=== PATIENT | male | born 1970 | race Caucasian/White ===

== ENCOUNTER 2018-05-08 23:31 | Inpatient (IN) | payer OTHER ==
[~2018-05-08] VITALS: Ht 193 cm; Wt 90.0 kg
[~2018-05-08 23:31] MED LIST: Crutch1 EACH MISC; Keflex500 MG PO; Naprosyn500 MG PO; Norco 10-325 T1 EACH PO; Prednisone10 MG PO
[2018-05-08 23:51] LABS: PCO2 Arterial 50.6 mmHg (35-45); PO2 Arterial 84.2 mmHg (80-100); pH Blood Arterial 7.36 (7.35-7.45)
[2018-05-09 00:03] LABS: BASOPHILS ABSOLUTE AUTO 0.05 K/mm3 (0.00-0.23); BASOPHILS PERCENT AUTO 0 % (0-2); EOSINOPHILS ABSOLUTE AUTO 0.16 K/mm3 (0.00-0.68); EOSINOPHILS PERCENT AUTO 1 % (0-6); Hemoglobin 15.3 g/dL (13.5-17.5); IMMATURE GRAN ABSOLUTE AUTO 0.05 K/mm3 (0.00-0.10); IMMATURE GRAN PERCENT AUTO 0 % (0-1); LYMPHOCYTES PERCENT AUTO 10 % (21-46); MONOCYTES ABSOLUTE AUTO 1.24 K/mm3 (0.16-1.47); MONOCYTES PERCENT AUTO 8 % (4-13); Mean Corpuscular HGB 31.7 pg (26.0-34.0); Mean Corpuscular Volume 93 fL (80-100); Mean Platelet Volume 8.7 fL (9.1-12.4); NEUTROPHILS ABSOLUTE AUTO 12.65 K/mm3 (1.96-9.15); NEUTROPHILS PERCENT AUTO 80 % (41-73); Platelet Count 299 K/mm3 (150-400); RDW Coefficient Variation 11.7 % (11.7-14.2); RDW Standard Deviation 40.1 fL (35.1-46.3); Red Blood Cell Count 4.82 M/mm3 (4.30-5.90); White Blood Cell Count 15.75 K/mm3 (4.00-11.30)
[2018-05-09 00:22] LABS: Alanine Aminotransfer (ALT/SGP 100 U/L (12-78); Albumin, Blood 4.1 g/dL (3.4-5.0); Albumin/Globulin Ratio 1.1 (0.8-1.8); Alk Phos 95 U/L (50-136); Anion Gap 7 mmol/L (6-16); Aspartate Aminotrans (AST/SGOT 134 U/L (12-37); Bilirubin, Total 0.3 mg/dL (0.1-1.0); Blood Urea Nitrogen 22 mg/dL (8-24); CO2, Blood 29 mmol/L (21-32); Calcium, Blood 9.3 mg/dL (8.5-10.1); Chloride, Blood 104 mmol/L (98-108); Creatinine, Blood 1.16 mg/dL (0.60-1.20); Globulin, Blood 3.7 g/dL (2.2-4.0); Glomerular Filtration Rate >60 (60-); Glucose, Blood 133 mg/dL (70-99); Potassium, Blood 4.1 mmol/L (3.5-5.5); Sodium, Blood 140 mmol/L (136-145); Total Protein, Blood 7.8 g/dL (6.4-8.2)
[2018-05-09 02:38] LABS: Ethanol (Alcohol), Blood, Med <3 mg/dL
[2018-05-10] MEDS ORDERED: Percocet 5-3251 EACH PO (16:27)
[2018-05-10] MEDS ORDERED: DOCU100 PO (16:36)
[2018-05-10] MEDS ORDERED: MIRALAX17 GM PO (16:37)
== END 2018-05-10 18:20 | disposition home or self-care (01) | DRG 206 ==
LOC: ER 23:31 → SURS 23:32
PROVIDERS: Emergency Medicine
PROC: 0W9930Z Drainage of Right Pleural Cavity with Drainage Device, Percutaneous Approach (ICD-10-PCS; principal; 2018-05-09)
DX: S27.321A Contusion of lung, unilateral, initial encounter (principal); S22.41XA Multiple fractures of ribs, right side, initial encounter for closed fracture; S27.2XXA Traumatic hemopneumothorax, initial encounter; F17.210 Nicotine dependence, cigarettes, uncomplicated; S70.11XA Contusion of right thigh, initial encounter; S00.81XA Abrasion of other part of head, initial encounter; V28.4XXA Motorcycle driver injured in noncollision transport accident in traffic accident, initial encounter; Y93.I9 Activity, other involving external motion
CPT/HCPCS: 32551; 36415; 36600; 70450; 71045; 71046; 71260; 72125; 74177; 80053; 82803; 85025; 96361; 96374; 96375; 99285-25; G0378; G0480; J1170; J1650; J1885; J2405; J3010; J7030; J7120; Q0163; Q9967

== ENCOUNTER 2018-05-13 06:38 | Emergency (ER) | payer OTHER ==
[~2018-05-13] VITALS: Ht 188 cm; Wt 90.7 kg
[~2018-05-13 06:38] MED LIST changes: +DOCU100 PO; +MIRALAX17 GM PO; +Percocet 5-3251 EACH PO
[2018-05-13] MEDS ORDERED: Miralax17 GM PO (07:12)
== END 2018-05-13 07:37 | disposition home or self-care (01) ==
LOC: ER 06:38
DX: K59.03 Drug induced constipation (principal); T40.2X5A Adverse effect of other opioids, initial encounter; Z87.891 Personal history of nicotine dependence
CPT/HCPCS: 99282

== ENCOUNTER 2018-05-17 10:53 | Emergency (ER) | payer OTHER ==
[~2018-05-17] VITALS: Ht 190.5 cm; Wt 86.2 kg
[~2018-05-17 10:53] MED LIST changes: +Miralax17 GM PO
[2018-05-17 11:58] LABS: BASOPHILS ABSOLUTE AUTO 0.06 K/mm3 (0.00-0.23); BASOPHILS PERCENT AUTO 1 % (0-2); EOSINOPHILS ABSOLUTE AUTO 0.16 K/mm3 (0.00-0.68); EOSINOPHILS PERCENT AUTO 2 % (0-6); Hematocrit 42.8 % (37.0-53.0); Hemoglobin 14.8 g/dL (13.5-17.5); IMMATURE GRAN ABSOLUTE AUTO 0.05 K/mm3 (0.00-0.10); IMMATURE GRAN PERCENT AUTO 1 % (0-1); LYMPHOCYTES PERCENT AUTO 19 % (21-46); MONOCYTES ABSOLUTE AUTO 1.54 K/mm3 (0.16-1.47); MONOCYTES PERCENT AUTO 21 % (4-13); Mean Corpuscular HGB 31.2 pg (26.0-34.0); Mean Corpuscular HGB Conc 34.6 g/dL (31.5-36.5); Mean Corpuscular Volume 90 fL (80-100); Mean Platelet Volume 8.8 fL (9.1-12.4); NEUTROPHILS ABSOLUTE AUTO 4.14 K/mm3 (1.96-9.15); NEUTROPHILS PERCENT AUTO 56 % (41-73); Platelet Count 415 K/mm3 (150-400); RDW Coefficient Variation 11.1 % (11.7-14.2); RDW Standard Deviation 36.7 fL (35.1-46.3); Red Blood Cell Count 4.75 M/mm3 (4.30-5.90); White Blood Cell Count 7.35 K/mm3 (4.00-11.30)
[2018-05-17 12:15] LABS: Alanine Aminotransfer (ALT/SGP 66 U/L (12-78); Albumin, Blood 3.3 g/dL (3.4-5.0); Albumin/Globulin Ratio 0.7 (0.8-1.8); Alk Phos 153 U/L (50-136); Anion Gap 7 mmol/L (6-16); Aspartate Aminotrans (AST/SGOT 31 U/L (12-37); Bilirubin, Total 0.6 mg/dL (0.1-1.0); Blood Urea Nitrogen 28 mg/dL (8-24); Bun/Creatinine Ratio 38.5 (12.0-20.0); CO2, Blood 33 mmol/L (21-32); Calcium, Blood 9.6 mg/dL (8.5-10.1); Chloride, Blood 93 mmol/L (98-108); Creatinine, Blood 0.73 mg/dL (0.60-1.20); Globulin, Blood 4.5 g/dL (2.2-4.0); Glomerular Filtration Rate >60 (60-); Glucose, Blood 104 mg/dL (70-99); Potassium, Blood 3.4 mmol/L (3.5-5.5); Sodium, Blood 133 mmol/L (136-145); Total Protein, Blood 7.8 g/dL (6.4-8.2)
[2018-05-17] MEDS ORDERED: Ery-Tab250 MG PO (13:30)
== END 2018-05-17 14:19 | disposition home or self-care (01) ==
LOC: ER 10:53
PROVIDERS: Emergency Medicine
DX: K56.7 Ileus, unspecified (principal); J90 Pleural effusion, not elsewhere classified; S22.41XD Multiple fractures of ribs, right side, subsequent encounter for fracture with routine healing; S27.0XXD Traumatic pneumothorax, subsequent encounter; Z87.891 Personal history of nicotine dependence; V19.9XXD Pedal cyclist (driver) (passenger) injured in unspecified traffic accident, subsequent encounter
CPT/HCPCS: 36415; 74177; 80053; 83690; 85025; 96361; 96374; 96375; 99284-25; J2405; J2765; J3010; J7030; Q9967

== ENCOUNTER 2019-05-01 00:05 | Emergency (ER) | payer OTHER ==
[~2019-05-01] VITALS: Ht 188 cm; Wt 86.2 kg
[~2019-05-01 00:05] MED LIST changes: +Ery-Tab250 MG PO
[2019-05-01] MEDS ORDERED: Percocet 10-321 EACH PO (02:18)
[2019-05-01] MEDS ORDERED: Silvadene20 GM TOP (02:50)
== END 2019-05-01 03:08 | disposition home or self-care (01) ==
LOC: ER 00:05
DX: T24.001A Burn of unspecified degree of unspecified site of right lower limb, except ankle and foot, initial encounter (principal); T31.11 Burns involving 10-19% of body surface with 10-19% third degree burns; T23.051A Burn of unspecified degree of right palm, initial encounter; F17.200 Nicotine dependence, unspecified, uncomplicated; X08.8XXA Exposure to other specified smoke, fire and flames, initial encounter
CPT/HCPCS: 16025; 96374-59; 96375-59; 96376-59; 99284-25; A9270; A9270-GY; J1170; J2405

== ENCOUNTER 2019-05-03 15:54 | Emergency (ER) | payer OTHER ==
[~2019-05-03] VITALS: Ht 188 cm; Wt 86.2 kg
[~2019-05-03 15:54] MED LIST changes: +Percocet 10-321 EACH PO; +Silvadene20 GM TOP
[2019-05-03] MEDS ORDERED: Silvadene20 GM TOP ×2 (16:57→17:20)
== END 2019-05-03 17:21 | disposition home or self-care (01) ==
LOC: ER 15:54
DX: T24.231D Burn of second degree of right lower leg, subsequent encounter (principal); T31.11 Burns involving 10-19% of body surface with 10-19% third degree burns; F17.200 Nicotine dependence, unspecified, uncomplicated; X08.8XXD Exposure to other specified smoke, fire and flames, subsequent encounter
CPT/HCPCS: 16030; 99282-25

== ENCOUNTER 2019-05-06 20:00 | Emergency (ER) | payer OTHER ==
[~2019-05-06] VITALS: Ht 188 cm; Wt 88.5 kg
[2019-05-06] MEDS ORDERED: Advil Migraine200 MG (20:37)
== END 2019-05-07 00:30 | disposition home or self-care (01) ==
LOC: ER 20:00
DX: T59.891D Toxic effect of other specified gases, fumes and vapors, accidental (unintentional), subsequent encounter (principal); T24.4 Corrosion of unspecified degree of lower limb, except ankle and foot; T32.0 Corrosions involving less than 10% of body surface; F17.210 Nicotine dependence, cigarettes, uncomplicated
CPT/HCPCS: 16025; 99283-25; A9270

== ENCOUNTER 2022-07-24 03:55 | Emergency (ER) | payer OTHER ==
[~2022-07-24] VITALS: Ht 188 cm; Wt 88.5 kg
[~2022-07-24 03:55] MED LIST changes: +Advil Migraine200 MG
[2022-07-24] MEDS ORDERED: PRED20 PO (04:36)
== END 2022-07-24 04:46 | disposition home or self-care (01) ==
LOC: ER 03:55
DX: L29.9 Pruritus, unspecified (principal); F17.210 Nicotine dependence, cigarettes, uncomplicated
CPT/HCPCS: 99282